=== PATIENT | female | born 1985 | race Caucasian/White ===

== ENCOUNTER 2019-03-30 10:21 | Emergency (ER) | payer OTHER ==
[~2019-03-30] VITALS: Ht 167.6 cm; Wt 61.0 kg
[2019-03-30] MEDS ORDERED: [UNRECOGNIZED DRUG - OTHER] PO (10:48)
[2019-03-30] MEDS ORDERED: MEDDOSEPAK PO (11:24)
[2019-03-30] MEDS ORDERED: FLEXERIL5 MG PO (11:24)
[2019-03-30 11:50] VITALS: BP 126/84
== END 2019-03-30 11:50 | disposition home or self-care (01) | DRG 552 ==
LOC: ED 10:21
DX: M54.41 Lumbago with sciatica, right side (principal)

== ENCOUNTER 2019-10-26 13:54 | Emergency (ER) | payer OTHER ==
[~2019-10-26] VITALS: Ht 167.6 cm; Wt 61.3 kg
[~2019-10-26 13:54] MED LIST: FLEXERIL5 MG PO; MEDDOSEPAK PO; [UNRECOGNIZED DRUG - OTHER] PO
[2019-10-26 16:00] VITALS: BP 110/69
[2019-10-26] MEDS ORDERED: PRE-NATAL PO (16:13)
== END 2019-10-26 16:00 | disposition home or self-care (01) | DRG 951 ==
LOC: ED 13:54
DX: Z20.828 Contact with and (suspected) exposure to other viral communicable diseases (principal)